=== PATIENT | female | born 1995 | race Caucasian/White ===

== ENCOUNTER → 2021-09-22 | Outpatient (CLI) | payer BC ==
[~2021-09-22] VITALS: Ht 162 cm; Wt 75.0 kg
[~2021-09-22] MED LIST: INFLIXIMAB FOR IV ONE; NORMAL SALINE IV ONE
[2021-09-22 11:13] VITALS: BP 125/89
== END ==
LOC: SDC 09:58
PROVIDERS: ATTEND Internal Medicine Gastroenterology
DX: K50.80 Crohn's disease of both small and large intestine without complications (principal)
CPT/HCPCS: 96365; 96366

== ENCOUNTER → 2022-02-11 | Outpatient (CLI) | payer BC ==
[~2022-02-11] VITALS: Ht 162 cm; Wt 71.3 kg
[~2022-02-11] MED LIST changes: -INFLIXIMAB FOR IV ONE; +INFLIXIMAB FOR IV SCH; -NORMAL SALINE IV ONE; +NORMAL SALINE IV SCH
[2022-02-11 11:15] VITALS: BP 118/75
== END ==
LOC: SDC 11:09
PROVIDERS: ATTEND Internal Medicine Gastroenterology
DX: K50.80 Crohn's disease of both small and large intestine without complications (principal)
CPT/HCPCS: 96365; 96366

== ENCOUNTER → 2022-04-08 | Outpatient (CLI) | payer BC ==
[2022-04-08 13:57] VITALS: BP 117/80
== END ==
LOC: SDC 13:10
PROVIDERS: ATTEND Internal Medicine Gastroenterology
DX: K50.80 Crohn's disease of both small and large intestine without complications (principal)
CPT/HCPCS: 96365; 96366

== ENCOUNTER 2022-06-06 10:14 | Outpatient (CLI) | payer BC ==
[~2022-06-06] VITALS: Ht 162.6 cm; Wt 72.7 kg
[2022-06-06] MEDS ORDERED: INFLIXIMAB FOR IV ONE (11:00)
[2022-06-06] MEDS ORDERED: NORMAL SALINE IV ONE (11:00)
[2022-06-06 13:35] VITALS: BP 118/73
[2022-06-06] MEDS ORDERED: SERT25TA PO (14:21)
== END 2022-06-06 13:35 | disposition home or self-care (01) ==
LOC: SDC 10:14
PROVIDERS: ATTEND Internal Medicine Gastroenterology
DX: K50.80 Crohn's disease of both small and large intestine without complications (principal)
CPT/HCPCS: 96365; 96366

== ENCOUNTER 2022-09-01 09:00 | Outpatient (RCR) | payer BC ==
[~2022-09-01] VITALS: Ht 162.6 cm; Wt 71.3 kg
[~2022-09-01 09:00] MED LIST changes: +D5W IV SCH; -INFLIXIMAB FOR IV SCH; -NORMAL SALINE IV SCH; +SERT25TA PO; +[UNRECOGNIZED DRUG - OTHER] IV SCH
[2022-09-01] MEDS ORDERED: [UNRECOGNIZED DRUG - OTHER] IV SCH ×2 (09:15)
[2022-09-01] MEDS ORDERED: D5W IV SCH ×2 (09:15)
[2022-09-01 10:30] VITALS: BP 128/83
== END 2022-09-12 | disposition home or self-care (01) ==
LOC: SDC 09:00
PROVIDERS: ATTEND Internal Medicine Gastroenterology
DX: K50.80 Crohn's disease of both small and large intestine without complications (principal)
CPT/HCPCS: 96365; 96366

== ENCOUNTER 2022-10-03 08:00 | Outpatient (RCR) | payer BC ==
[~2022-10-03] VITALS: Wt 71.3 kg
[~2022-10-03 08:00] MED LIST changes: -D5W IV SCH; -[UNRECOGNIZED DRUG - OTHER] IV SCH
[2022-10-03] MEDS ORDERED: [UNRECOGNIZED DRUG - OTHER] IV SCH ×2 (08:15)
[2022-10-03] MEDS ORDERED: D5W IV SCH ×2 (08:15)
[2022-10-03 08:45] VITALS: BP 115/79
== END 2022-10-13 | disposition home or self-care (01) ==
LOC: SDC 08:00
PROVIDERS: ATTEND Internal Medicine Gastroenterology
DX: K50.80 Crohn's disease of both small and large intestine without complications (principal)
CPT/HCPCS: 96365; 96366

== ENCOUNTER 2022-10-31 09:04 | Outpatient (RCR) | payer BC ==
[~2022-10-31] VITALS: Ht 162 cm; Wt 71.3 kg
[2022-10-31] MEDS ORDERED: D5W IV SCH ×2 (09:30)
[2022-10-31] MEDS ORDERED: [UNRECOGNIZED DRUG - OTHER] IV SCH ×2 (09:30)
[2022-10-31 09:45] VITALS: BP 115/94
== END 2022-11-12 | disposition home or self-care (01) ==
LOC: SDC 09:04
PROVIDERS: ATTEND Internal Medicine Gastroenterology
DX: K50.80 Crohn's disease of both small and large intestine without complications (principal)
CPT/HCPCS: 96365